=== PATIENT | male | born 1995 | race Caucasian/White ===

== ENCOUNTER → 2021-08-16 | Outpatient (CLI) | payer OTHER ==
[~2021-08-16] MED LIST: ATARAX25 MG PO; AUGMENTIN ES-6050 ML PO; CLARITIN5 MG/5 ML PO; MOTRIN600 MG PO; PREDNICOT20 MG PO
== END | disposition home or self-care (01) ==
LOC: COVID19 18:24
PROVIDERS: ATTEND Internal Medicine
DX: U07.1 COVID-19 (principal)

== ENCOUNTER 2025-07-02 21:28 | Emergency (ER) | payer MEDICARE, MEDICAID ==
[~2025-07-02] VITALS: Ht 187.9 cm; Wt 83.9 kg
== END 2025-07-02 21:36 | disposition left against medical advice (07) ==
LOC: ED 21:28
DX: F10.129 Alcohol abuse with intoxication, unspecified (principal); Z53.21 Procedure and treatment not carried out due to patient leaving prior to being seen by health care provider

== ENCOUNTER 2025-09-07 13:48 | Emergency (ER) | payer MEDICARE, MEDICAID ==
[~2025-09-07] VITALS: Wt 111.1 kg
[2025-09-07 14:25] LABS: BASO # 0.0 10*3/uL (0.0-0.1); BASO % 0.2 % (0.0-1.0); EOS # 0.1 10*3/uL (0.0-0.4); EOS % 0.7 % (1.0-4.0); MEAN CELL VOLUME 92.6 fl (80.0-94.0); MEAN CORPUSCULAR HGB 30.2 pg (27.0-31.0); MEAN PLATELET VOLUME 9.3 fl (9.6-12.3); MONO # 1.0 10*3/uL (0.1-1.0); MONO % 8.1 % (3.0-9.0); NEUT # 9.9 10*3/uL (2.3-7.9); NEUT % 79.5 % (47.0-73.0); NUCLEATED RED BLOOD CELL 0.0 % (0.0-0.0); NUCLEATED RED BLOOD CELL 0.0 10*3/uL (0.0-0.0); PLATELET COUNT AUTOMATED 262 10*3/uL (130-400); RED CELL DISTRI WIDTH 14.1 % (0-14.5)
[2025-09-07 14:46] LABS: BUN 11 mg/dl (9-23)
[2025-09-07 14:47] LABS: ETHYL ALCOHOL < 3.0 mg/dl (<3)
[2025-09-07 14:57] LABS: BILIRUBIN Negative (Negative); BLOOD Negative (Negative); CLARITY Turbid (Clear); COLOR Yellow (Yellow); KETONE 3+ (Negative); LEUKO ESTERASE Negative (Negative); NITRITE Negative (Negative); PH 7.5 (4.5-8.0); SPECIFIC GRAVITY 1.020 (1.001-1.030); UROBILINOGEN 1.0 E.U./dl (0.0-1.0)
[2025-09-07 15:05] LABS: URINE AMPHETAMINES Positive (1000ng/ml); URINE BARBITURATES Negative (200ng/ml); URINE BENZODIAZEPINES Negative (200ng/ml); URINE CANNABINOIDS (THC) Negative (50ng/ml); URINE COCAINE Negative (300ng/ml); URINE METHADONE Negative (300ng/ml); URINE OPIATES Negative (300ng/ml); URINE PHENCYCLIDINE Negative (25ng/ml)
[2025-09-07 15:09] LABS: BACTERIA 2+; WBC 0-2 wbc/hpf (0-5)
== END 2025-09-07 22:25 ==
LOC: ED 13:48
PROVIDERS: Emergency Medicine
DX: F15.90 Other stimulant use, unspecified, uncomplicated (principal); F29 Unspecified psychosis not due to a substance or known physiological condition; R45.88 Nonsuicidal self-harm